=== PATIENT | female | born 1965 ===

== ENCOUNTER 2016-12-13 15:24 | Observation (INO) | payer OTHER ==
[2016-12-13 15:43] VITALS: BMI 29.7
[2016-12-13 15:49] VITALS: O2SAT 99
--- NOTE | 2016-12-13 15:51 | ED PDOC ---
Arrival/HPI - General Chief Complaint: Chest Pain Time Seen by Provider: 12/13/16 15:28 Historian: Patient - History of Present Illness Narrative History of Present Illness (Text): 12/13/16 15:39 A 51 year old female, whose past medical history includes hypertension, is presenting to the emergency department with complaints of chest pain and left sided numbness, which began earlier today. The patient reports that her symptoms began yesterday when she had a headache and then chest pain this morning. Today at 12:55 pm, she began to feel numbness, pain, and weakness in her left arm and in her left leg she began to feel numbness. She notes that her chest pain worsens with deep breaths. She denies any vision changes, nausea, vomiting, diarrhea, shortness of breath, hematuria, bloody stools, fever, or any other symptoms at this time. PMD: Dr. Zuniga Time/Duration: 4-6 hours (12:55 pm left sided arm & leg numbness ), 24 hours ( Headache) Symptom Onset: Sudden Symptom Course: Unchanged Activities at Onset: Light Context: Home, Work Past Medical History - Provider Review Nursing Documentation Reviewed: Yes - Cardiac Hx Hypertension: Yes - Pulmonary Hx Respiratory Disorders: No - Neurological Hx Neurological Disorder: No - HEENT Hx HEENT Disorder: No - Renal Hx Renal Disorder: No - Endocrine/Metabolic Hx Endocrine Disorders: No - Hematological/Oncological Hx Blood Disorders: No - Integumentary Hx Dermatological Disorder: No - Musculoskeletal/Rheumatological Hx Musculoskeletal Disorders: No - Gastrointestinal Hx Gastrointestinal Disorders: No - Genitourinary/Gynecological Hx Genitourinary Disorders: No - Psychiatric Hx Psychophysiologic Disorder: No Hx Substance Use: No - Surgical History Hx Section: Yes - Anesthesia Hx Anesthesia: No Hx Anesthesia Reactions: No Hx Malignant Hyperthermia: No Family/Social History - Physician Review Nursing Documentation Reviewed: Yes Family/Social History: No Known Family HX, Unknown Family HX Smoking Status: Never Smoked Hx Alcohol Use: No Hx Substance Use: No Allergies/Home Meds Allergies/Adverse Reactions: Allergies aspirin Allergy (Verified 12/13/16 15:40) RASH Home Medications: Home Meds Medication Instructions Recorded Confirmed Losartan/Hydrochlorothiazide 1 tab PO DAILY 12/13/16 12/13/16 [Losartan-Hctz 50-12.5 mg Tab] Pantoprazole [Protonix EC Tab] 40 mg PO DAILY 12/13/16 12/13/16 Review of Systems - Review of Systems Constitutional: absent: Fevers Eyes: absent: Vision Changes Respiratory: absent: SOB Cardiovascular: Chest Pain Gastrointestinal: absent: Abdominal Pain, Stool Changes, Diarrhea, Nausea, Vomiting Genitourinary Female: absent: Hematuria Neurological: Headache (3 days ), Focal Weakness (left arm) Physical Exam Vital Signs Reviewed: Yes Vital Signs Temp Pulse Resp BP Pulse Ox 12/13/16 15:49 80 18 163/79 H 99 12/13/16 15:25 98.1 F 76 16 163/79 H 99 Temperature: Afebrile Blood Pressure: Hypertensive Pulse: Regular Respiratory Rate: Normal Appearance: Positive for: Well-Appearing, Non-Toxic, Comfortable Pain Distress: None Mental Status: Positive for: Alert and Oriented X 3 Finger Stick Blood Glucose: 96 - Systems Exam Head: Present: Atraumatic, Normocephalic Pupils: Present: PERRL Extroacular Muscles: Present: EOMI Conjunctiva: Present: Normal Mouth: Present: Moist Mucous Membranes Pharnyx: Present: Normal. No: ERYTHEMA, EXUDATE Neck: Present: Normal Range of Motion Respiratory/Chest: Present: Clear to Auscultation, Good Air Exchange. No: Respiratory Distress, Accessory Muscle Use Cardiovascular: Present: Regular Rate and Rhythm, Normal S1, S2. No: Murmurs Abdomen: Present: Normal Bowel Sounds. No: Tenderness, Distention, Peritoneal Signs Upper Extremity: Present: Normal Inspection. No: Cyanosis, Edema Lower Extremity: Present: Normal Inspection. No: Edema Neurological: Present: GCS=15, CN II-XII Intact, Speech Normal, Motor Func Grossly Intact, Normal Cerebellar Funct Skin: Present: Warm, Dry, Normal Color. No: Rashes Psychiatric: Present: Alert, Oriented x 3, Normal Insight, Normal Concentration Medical Decision Making ED Course and Treatment: 12/13/16 15:39 Impression: A 51 year old female with chest pain and left sided numbness. Differential Diagnosis included but are not limited to: TIA vs ACS vs Hypertensive Urgency Plan: -- Head CT -- Chest X-ray -- Labs -- IV fluids -- Reassess and disposition Prior Visits: Notes and results from previous visits were reviewed. Patient was last seen in the emergency department on 05/03/16 for lightheadedness and was discharged home. Progress Notes: EKG: Ordered, reviewed, and independently interpreted the EKG. Rate : 73 BPM Rhythm : NSR Interpretation : Left LBBB QRS is 124 normal access pseudo normalization of T wave V-3and V-4. Comparison : No other ST/T changes from 05/03/16 (besides the pseudonormalization) 12/13/16 16:[address]: Negative Discussed with Dr. Jovon Mosley 12/13/16 16:28 Chest X-ray Brick Catcher : Glenn Whittington MD PROCEDURE: CHEST RADIOGRAPH, 1 VIEW HISTORY:chest pain, left side numbness IMPRESSION: No active disease. 12/13/16 17:25 A code stroke (15:45) was called given the symptom presentation; NIHSS was zero. Case was discussed with Dr. Jovon Mosley. Brain CT is negative and labs are nondiagnostic. EKG shows an old LBBB. Asa was held due to allergy. Given symptoms, the patient will need further observation for concern for TIA and ACS. Will place on tele. Discussed with Dr. Arvizu. - Lab Interpretations Lab Results: 12/13/16 16:05 12/13/16 16:05 Lab Results 12/13/16 16:05: Blood Type AB NEGATIVE, Antibody Screen Negative, BBK History Checked No verified bt 12/13/16 16:05: Sodium 137, Potassium 3.4 L, Chloride 101, Carbon Dioxide 26, Anion Gap 13, BUN 8, Creatinine 0.8, Est GFR ( Amer) > 60, Est GFR (Non- Af Amer) > 60, Random Glucose 103, Calcium 9.4, Total Bilirubin 0.6, AST 27, ALT 29, Alkaline Phosphatase 59, Lactate Dehydrogenase 434, Total Creatine Kinase 63, Troponin I < 0.01, Total Protein 8.0, Albumin 4.3, Globulin 3.7, Albumin/Globulin Ratio 1.2, Triglycerides 262 H, Cholesterol 229 H, LDL Cholesterol Direct 139 H, HDL Cholesterol 49, Lipase 72 12/13/16 16:05: PT 10.9, INR 1.01, APTT 26.1 12/13/16 16:05: WBC 8.1 D, RBC 4.80, Hgb 13.9, Hct 39.8, MCV 82.9, MCH 29.0, MCHC 34.9, RDW 13.3, Plt Count 252, MPV 10.6, Gran % 51.3, Lymph % (Auto) 36.4 H , Hayes % (Auto) 8.4 H, Eos % (Auto) 3.2, Baso % (Auto) 0.7, Gran # 4.14, Lymph # 2.9, Hayes # 0.7 H, Eos # 0.3, Baso # 0.06 12/13/16 15:47: POC Glucose (mg/dL) 96 - RAD Interpretation Radiology Orders: 12/13/16 15:46 HEAD W/O (CODE STROKE) [CT] Stat CHEST ONE VIEW [RAD] Stat - Medication Orders Current Medication Orders: Discontinued Medications Potassium Chloride (K-Dur 20 Meq Er Tab) 40 meq PO STAT STA Stop: 12/13/16 16:44 Last Admin: 12/13/16 16:52 Dose: 40 meq NIHSS Scale ([place]) Time Performed: 15:45 - How Severe is the Stoke Baseline Level of Consciousness: 0=Alert LOC to Questions: 0=Both comments correct LOC to commands: 0=Obeys both correctly Best Gaze: 0=Normal Visual: 0=No visual loss Facial: 0=Normal Motor Arm - Left: 0=No drift Motor Arm - Right: 0=No drift Motor Leg - Left: 0=No drift Motor Leg - Right: 0=No drift Limb Ataxia: 0=Absent Sensory: 0=Normal Best Language: 0=No aphasia Dysarthia: 0=Normal articulation Extinction & Inattention (Neglect): 0=Normal, no object Score: 0 Risk Level: No Stroke Risk - PA / STEEL SAMPLER / Resident Statement MD/DO has reviewed & agrees with the documentation as recorded. - Scribe Statement The provider has reviewed the documentation as recorded by the Alyciaibginny Reyes Provider Scribe Attestation: All medical record entries made by the Merly were at my direction and personally dictated by me. I have reviewed the chart and agree that the record accurately reflects my personal performance of the history, physical exam, medical decision making, and the department course for this patient. I have also personally directed, reviewed, and agree with the discharge instructions and disposition. Disposition/Present on Arrival - Present on Arrival Any Indicators Present on Arrival: No History of DVT/PE: No History of Uncontrolled Diabetes: No Urinary Catheter: No History of Decub. Ulcer: No History Surgical Site Infection Following: None - Disposition Have Diagnosis and Disposition been Completed?: Yes Diagnosis: Chest pain, Transient ischemic attack Disposition: HOSPITALIZED Disposition Time: 15:45 Patient Plan: Observation, Telemetry Condition: FAIR Discharge Instructions (ExitCare): Chest Pain (ED) Forms: [employer] (Tristanian)
--- NOTE | 2016-12-13 16:12 | CT ---
PROCEDURE: CT HEAD WITHOUT CONTRAST. HISTORY: headache, L side numbness COMPARISON: None available. TECHNIQUE: Axial computed tomography images were obtained through the head/brain without intravenous contrast. Radiation dose: Total exam DLP = 757 mGy-cm. This CT exam was performed using one or more of the following dose reduction techniques: Automated exposure control, adjustment of the mA and/or kV according to patient size, and/or use of iterative reconstruction technique. FINDINGS: HEMORRHAGE: No intracranial hemorrhage. BRAIN: No mass effect or edema. No atrophy or chronic microvascular ischemic changes. VENTRICLES: Unremarkable. No hydrocephalus. CALVARIUM: Unremarkable. PARANASAL SINUSES: Unremarkable as visualized. No significant inflammatory changes. MASTOID AIR CELLS: Unremarkable as visualized. No inflammatory changes. OTHER FINDINGS: Dr. Monique was called at 4:10 p.m. IMPRESSION: Negative study
--- NOTE | 2016-12-13 16:15 | RAD ---
PROCEDURE: CHEST RADIOGRAPH, 1 VIEW HISTORY: chest pain, left side numbness COMPARISON: 05/03/2016 FINDINGS: LUNGS: Clear. PLEURA: No pneumothorax or pleural fluid seen. CARDIOVASCULAR: Normal. OSSEOUS STRUCTURES: No significant abnormalities. VISUALIZED UPPER ABDOMEN: Normal. OTHER FINDINGS: None. IMPRESSION: No active disease.
[2016-12-13 16:24] LABS: ADD MANUAL DIFF? NO
[2016-12-13 16:29] LABS: BASO # 0.06 K/mm3 (0.0-2.0); BASO % 0.7 % (0.0-3.0); EOS # 0.3 (0.0-0.7); EOS % 3.2 % (1.5-5.0); GRAN # 4.14 (1.4-6.5); GRAN % 51.3 % (50.0-68.0); HEMATOCRIT 39.8 % (36.0-48.0); LYMPH # 2.9 (1.2-3.4); LYMPH % 36.4 % (22.0-35.0); MEAN CELL VOLUME 82.9 fL (80.0-105.0); MEAN CORPUSCULAR HGB CONC 34.9 g/dl (31.0-37.0); MEAN PLATELET VOLUME 10.6 fl (7.0-11.0); MONO # 0.7 (0.1-0.6); MONO % 8.4 % (1.0-6.0); PLATELET COUNT 252 10^3/uL (120.0-450.0); RED CELL DISTRIBUTION WIDTH 13.3 % (11.5-14.5); WHITE BLOOD COUNT 8.1 10^3/ul (4.5-11.0)
[2016-12-13 16:39] LABS: INR 1.01 (0.93-1.08); PARTIAL THROMBOPLASTIN TIME 26.1 Seconds (23.7-30.8)
[2016-12-13 16:40] LABS: ALB/GLOB RATIO 1.2 (1.1-1.8); ALKALINE PHOSPHATASE 59 U/L (38-133); ALT/SGPT 29 U/L (7-56); AST/SGOT 27 U/L (15-39); BILIRUBIN,TOTAL 0.6 mg/dL (0.2-1.3); BLOOD UREA NITROGEN 8 mg/dL (7-21); CALCIUM 9.4 mg/dL (8.4-10.5); CARBON DIOXIDE 26 mmol/L (21-33); CHLORIDE 101 mmol/L (98-107); CHOLESTEROL 229 mg/dL (130-200); GFR AFRICAN-AMERICAN > 60; GLUCOSE,RANDOM 103 mg/dL (70-110); LIPASE 72 U/L (23-300); POTASSIUM 3.4 mmol/L (3.6-5.0); SODIUM 137 mmol/L (132-148)
[2016-12-13] MEDS ORDERED: Potassium Chloride 20 mEq ER Tab PO STA (16:43)
[2016-12-13 16:55] LABS: TROPONIN I < 0.01 ng/mL
--- NOTE | 2016-12-13 18:26 | CP.PCM.HP ---
History of Present Illness - History of Present Illness History of Present Illness: 51 y/o F with PMH of HTN and GERD presents to the ED for 4 hour onset of chest pain and left sided paresthesias and numbness. Pt states she woke up this morning and noticed she had some chest discomfort. Pain was located substernally and radiated to her left arm. Pt states she has never had pain like this before. She did not take any medication for it at home. On arrival to the ED, her pain went away. In addition to having chest pain, pt reports having a numbness and tingling sensation throughout her left arm and below her left knee to her feet. She has not had symptoms like this before. She also mentions having weakness in her left arm and leg for a short period, which also resolved while the paresthesias remained. Pt reports having a left-sided headache. She denies any auras. Denies CP, SOB, N/V/D, fever, chills, recent sick contacts, syncope, dizziness. PMH: HTN, GERD Surgical Hx: FMH: Gastric Cancer, DM Social Hx: Denies alcohol, tobacco, or illicit drug use Medication: Protonix, Losartan-HCTZ Allergies: ASA Present on Admission - Present on Admission Any Indicators Present on Admission: No Review of Systems - Constitutional Constitutional: absent: Chills, Fatigue, Fever - EENT Eyes: absent: Blurred Vision, Change in Vision - Cardiovascular Cardiovascular: Chest Pain. absent: Irregular Heart Rhythm, Palpitations - Respiratory Respiratory: absent: Cough, Dyspnea - Gastrointestinal Gastrointestinal: absent: Diarrhea, Nausea, Vomiting - Genitourinary Genitourinary: absent: Dysuria, Pyuria - Musculoskeletal Musculoskeletal: Muscle Weakness, Numbness, Tingling - Integumentary Integumentary: absent: New Lesions, Rash - Neurological Neurological: Numbness, Headaches, Tingling. absent: Syncope - Hematologic/Lymphatic Hematologic: absent: Easy Bleeding, Easy Bruising Past Patient History - Past Social History Smoking Status: Never Smoked - CARDIAC Hx Hypertension: Yes - PULMONARY Hx Respiratory Disorders: No - NEUROLOGICAL Hx Neurological Disorder: No - HEENT Hx HEENT Problems: No - RENAL Hx Chronic Kidney Disease: No - ENDOCRINE/METABOLIC Hx Endocrine Disorders: No - HEMATOLOGICAL/ONCOLOGICAL Hx Blood Disorders: No - INTEGUMENTARY Hx Dermatological Problems: No - MUSCULOSKELETAL/RHEUMATOLOGICAL Hx Musculoskeletal Disorders: No - GASTROINTESTINAL Hx Gastrointestinal Disorders: No - GENITOURINARY/GYNECOLOGICAL Hx Genitourinary Disorders: No - PSYCHIATRIC Hx Psychophysiologic Disorder: No Hx Substance Use: No - SURGICAL HISTORY Hx Section: Yes - ANESTHESIA Hx Anesthesia: No Hx Anesthesia Reactions: No Hx Malignant Hyperthermia: No Meds Allergies/Adverse Reactions: Allergies Allergy/AdvReac Type Severity Reaction Status Date / Time aspirin Allergy RASH Verified 12/13/16 15:40 Physical Exam - Constitutional Appears: Well, No Acute Distress - Head Exam Head Exam: ATRAUMATIC, NORMAL INSPECTION, NORMOCEPHALIC - Eye Exam Eye Exam: EOMI - ENT Exam ENT Exam: Mucous Membranes Moist - Neck Exam Neck exam: Positive for: Normal Inspection. Negative for: Lymphadenopathy - Respiratory Exam Respiratory Exam: Clear to Auscultation Bilateral, NORMAL BREATHING PATTERN. absent: Rales, Rhonchi, Wheezes - Cardiovascular Exam Cardiovascular Exam: RRR, +S1, +S2 - GI/Abdominal Exam GI & Abdominal Exam: Normal Bowel Sounds, Soft. absent: Tenderness - Extremities Exam Extremities exam: Positive for: normal inspection. Negative for: calf tenderness, pedal edema - Neurological Exam Neurological exam: Alert, CN II-XII Intact, Oriented x3 Additional comments: No sensory deficits. No focal neurological deficits. 5/5 muscle strength in b/l upper and lower extremities. - Psychiatric Exam Psychiatric exam: Normal Affect, Normal Mood - Skin Skin Exam: Intact, Normal Color, Warm Results - Vital Signs Recent Vital Signs: Last Vital Signs Temp 98.1 F 12/13/16 15:25 Pulse 73 12/13/16 17:25 Resp 18 12/13/16 17:25 BP 109/55 L 12/13/16 17:25 Pulse Ox 99 12/13/16 17:25 - Labs Result Diagrams: 12/13/16 16:05 12/13/16 16:05 Assessment & Plan - Assessment and Plan (Free Text) Plan: 51 y/o F with PMH of HTN and GERD presents with Chest pain r/o ACS and TIA. Head CT and chest x-ray negative for any acute pathology. Pt will be admitted to telemetry. Cardiology and Neurology will be consulted. Will trend troponins at this time. 1. Chest pain r/o ACS - Trend troponins - Echocardiogram - Morphine for chest pain - Heart healthy diet - Cardiology consult, Dr. Avila 2. TIA - No symptoms currently - ASA allergy, will not start aspirin - Lipid panel ordered - HgA1c ordered - Neurology consult, Dr. Haroon Mosley 3. HTN - Continue Losartan and HCTZ - Monitor BP 4. GERD - Continue Protonix 5. PPX - Protonix - Heparin Seen, reviewed, and discussed with attending Charles, PGY-2
[2016-12-13] MEDS ORDERED: Morphine 2 mg/ml ISec IVP PRN (18:38)
[2016-12-13 19:13] LABS: MAGNESIUM 2.1 mg/dL (1.7-2.2); PHOSPHOROUS 3.3 mg/dL (2.5-4.5)
[2016-12-13] MEDS ORDERED: Pneumococcal 23-Valent Vaccine IM ONE (20:58)
[2016-12-14 04:08] LABS: HEMATOCRIT 39.4 % (36.0-48.0); MEAN CELL VOLUME 83.8 fL (80.0-105.0); MEAN CORPUSCULAR HEMOGLOBIN 28.3 pg (25.0-35.0); MEAN CORPUSCULAR HGB CONC 33.8 g/dl (31.0-37.0); MEAN PLATELET VOLUME 10.6 fl (7.0-11.0); RED CELL DISTRIBUTION WIDTH 13.5 % (11.5-14.5); WHITE BLOOD COUNT 6.5 10^3/ul (4.5-11.0)
[2016-12-14 04:22] LABS: ALB/GLOB RATIO 1.1 (1.1-1.8); ALKALINE PHOSPHATASE 47 U/L (38-133); ALT/SGPT 25 U/L (7-56); AST/SGOT 18 U/L (15-39); BILIRUBIN,TOTAL 0.6 mg/dL (0.2-1.3); BLOOD UREA NITROGEN 11 mg/dL (7-21); CALCIUM 9.4 mg/dL (8.4-10.5); CARBON DIOXIDE 24 mmol/L (21-33); CHLORIDE 104 mmol/L (98-107); GFR AFRICAN-AMERICAN > 60; GLUCOSE,RANDOM 98 mg/dL (70-110); POTASSIUM 3.7 mmol/L (3.6-5.0); SODIUM 140 mmol/L (132-148); TOTAL PROTEIN 7.3 g/dL (5.8-8.3)
[2016-12-14 04:34] LABS: TROPONIN I < 0.01 ng/mL
--- NOTE | 2016-12-14 10:11 | CARD ---
APPROVED REPORT EKG Measurement Heart [id number] <Conclusion> Normal sinus rhythm Left bundle branch block No change except the rate is faster
[2016-12-14 12:04] VITALS: BP 109/61; PULSE 64; RESP 18; TEMP 98.3
--- NOTE | 2016-12-14 14:28 | CON ---
DATE: 12/14/2016 NEUROLOGY CONSULT CHIEF COMPLAINT: Left-sided paresthesias. HISTORY OF PRESENT ILLNESS: This is a 51-year-old woman with history of hypertension, GERD, who came to the hospital for atypical chest pain and left-sided arm and leg numbness and tingling with a left-sided headache. She does not take any medication at home. SHE IS ALLERGIC TO ASPIRIN. No focal weakness in the extremities. She says she no longer has a headache at this time. She has been in little distress from family issues. Currently, her neuro exam is nonfocal. CAT scan of the head shows no acute intracranial abnormality. PAST MEDICAL HISTORY: Hypertension, GERD. PAST SURGICAL HISTORY: . FAMILY HISTORY: Gastric cancer, diabetes. SOCIAL HISTORY: No illicit drug use, smoking or ETOH abuse. MEDICATIONS: Protonix, losartan/hydrochlorothiazide. ALLERGIES: ASPIRIN. REVIEW OF SYSTEMS: A 14-point review of system is negative except as in the HPI. PHYSICAL EXAMINATION: VITAL SIGNS: Temperature 98.3, pulse rate 64, blood pressure 109/61, respiratory rate of 18, oxygen saturation 99% on room air. GENERAL: The patient is seen up in bed, in no acute distress. HEENT: Head is atraumatic and normocephalic. PERRLA. Extraocular muscles intact. NECK: Supple. No JVD. No adenopathy noted. LUNGS: Clear to auscultation. No adventitious sounds. HEART: S1 and S2, normal rate and rhythm. No murmurs, rubs, or gallops. ABDOMEN: Soft, nontender, and nondistended. Bowel sounds are present. EXTREMITIES: No clubbing. No cyanosis. Peripheral pulses 2+ bilaterally. NEUROLOGIC: The patient is alert and oriented to person, place, month, and year. Speech is fluent without any errors. Cranial nerves II through XII are intact. Motor exam: Moves all extremities equally. Toes are downgoing bilaterally. Sensory exam: Light touch, pinprick, proprioception and vibration are intact. DTRs are 2+ throughout. Coordination: [id number] intact. Gait is normal. LABORATORY DATA: Sodium is 140, potassium is 3.7, chloride 104, carbon dioxide 24, BUN of 11, creatinine of 0.8 and random glucose 98. Triglycerides 262, cholesterol 229, LDL is 139. ASSESSMENT: This is a 51-year-old woman with a past medical history of hypertension, gastroesophageal reflux disease, hypertriglyceridemia, hypercholesterolemia, who came in for transient left arm and leg paresthesias with left-sided headache. Her symptoms likely are secondary to transient cerebral hypoperfusion given that she has a low systolic and diastolic blood pressure superimposed underlying atypical variant migraine. PLAN: At this time, she is clinically stable. We will place her on Plavix 75 mg and Lipitor 20 mg for stroke prevention. I can follow up in the office. Recommend exercise and healthy diet lifestyle. Thank you for this consult. Jovon Mosley MD
--- NOTE | 2016-12-14 14:31 | CP.PCM.DIS ---
<AartiivisEdy jamison - Last Filed: 12/14/16 17:20> Provider - Provider Date of Admission: 12/13/16 17:22 Attending physician: Vito Arvizu MD Primary care physician: Goldy Zuniga MD Consults: none Time Spent in preparation of Discharge (in minutes): 30 Diagnosis - Discharge Diagnosis (1) Chest pain Status: Resolved (2) Transient ischemic attack Status: Resolved Hospital Course - Lab Results Lab Results: Most Recent Lab Values WBC 6.5 10^3/ul (4.5-11.0) 12/14/16 03:59 RBC 4.70 10^6/uL (3.5-6.1) 12/14/16 03:59 Hgb 13.3 gm/dL (12.0-16.0) 12/14/16 03:59 Hct 39.4 % (36.0-48.0) 12/14/16 03:59 MCV 83.8 fL (80.0-105.0) 12/14/16 03:59 MCH 28.3 pg (25.0-35.0) 12/14/16 03:59 MCHC 33.8 g/dl (31.0-37.0) 12/14/16 03:59 RDW 13.5 % (11.5-14.5) 12/14/16 03:59 Plt Count 232 10^3/uL (120.0-450.0) 12/14/16 03:59 MPV 10.6 fl (7.0-11.0) 12/14/16 03:59 Gran % 51.3 % (50.0-68.0) 12/13/16 16:05 Lymph % (Auto) 36.4 % (22.0-35.0) H 12/13/16 16:05 [place] % (Auto) 8.4 % (1.0-6.0) H 12/13/16 16:05 Eos % (Auto) 3.2 % (1.5-5.0) 12/13/16 16:05 Baso % (Auto) 0.7 % (0.0-3.0) 12/13/16 16:05 Gran # 4.14 (1.4-6.5) 12/13/16 16:05 Lymph # 2.9 (1.2-3.4) 12/13/16 16:05 [place] # 0.7 (0.1-0.6) H 12/13/16 16:05 Eos # 0.3 (0.0-0.7) 12/13/16 16:05 Baso # 0.06 K/mm3 (0.0-2.0) 12/13/16 16:05 PT 10.9 Seconds (9.9-11.8) 12/13/16 16:05 INR 1.01 (0.93-1.08) 12/13/16 16:05 APTT 26.1 Seconds (23.7-30.8) 12/13/16 16:05 Sodium 140 mmol/L (132-148) 12/14/16 03:59 Potassium 3.7 mmol/L (3.6-5.0) 12/14/16 03:59 Chloride 104 mmol/L (98-107) 12/14/16 03:59 Carbon Dioxide 24 mmol/L (21-33) 12/14/16 03:59 Anion Gap 16 (10-20) 12/14/16 03:59 BUN 11 mg/dL (7-21) 12/14/16 03:59 Creatinine 0.8 mg/dL (0.5-1.4) 12/14/16 03:59 Est GFR ( Amer) > 60 12/14/16 03:59 Est GFR (Non-Af Amer) > 60 12/14/16 03:59 POC Glucose (mg/dL) 96 mg/dL (65-110) 12/13/16 15:47 Random Glucose 98 mg/dL (70-110) 12/14/16 03:59 Calcium 9.4 mg/dL (8.4-10.5) 12/14/16 03:59 Phosphorus 3.3 mg/dL (2.5-4.5) 12/13/16 16:05 Magnesium 2.1 mg/dL (1.7-2.2) 12/13/16 16:05 Total Bilirubin 0.6 mg/dL (0.2-1.3) 12/14/16 03:59 AST 18 U/L (15-39) 12/14/16 03:59 ALT 25 U/L (7-56) 12/14/16 03:59 Alkaline Phosphatase 47 U/L (38-133) 12/14/16 03:59 Lactate Dehydrogenase 434 U/L (333-699) 12/13/16 16:05 Total Creatine Kinase 63 U/L (35-230) 12/13/16 16:05 Troponin I < 0.01 ng/mL 12/14/16 03:59 Total Protein 7.3 g/dL (5.8-8.3) 12/14/16 03:59 Albumin 3.9 g/dL (3.0-4.8) 12/14/16 03:59 Globulin 3.5 gm/dL 12/14/16 03:59 Albumin/Globulin Ratio 1.1 (1.1-1.8) 12/14/16 03:59 Triglycerides 262 mg/dL (35-160) H 12/13/16 16:05 Cholesterol 229 mg/dL (130-200) H 12/13/16 16:05 LDL Cholesterol Direct 139 mg/dL (0-129) H 12/13/16 16:05 HDL Cholesterol 49 mg/dL (29-60) 12/13/16 16:05 Lipase 72 U/L (23-300) 12/13/16 16:05 Blood Type AB NEGATIVE 12/13/16 16:05 Antibody Screen Negative 12/13/16 16:05 BBK History Checked No verified bt 12/13/16 16:05 - Hospital Course Hospital Course: Patient is a 51 year old female with past medical history of hypertension and GERD who [place] [facility] [place] for chest pain and left sided paresthesias and numbness. In the emergency department she was evaluated and a code stroke was called. Patient noted to have NIHS score of zero. Dr. Jovon Ledbetter with neurology was consulted and a Brain CT was preformed and determined to be negative for acute ischemic changes. Patient was admitted for suspected TIA and ACS rule out and placed on telemetry and monitored overnight. Patient symptoms improved and she was found to be neurological intact without deficit. Neurology indicated that the patient was clinically stable and planned for outpatient follow up. The patient was placed on Plavix 75mg and Lipitor 20mg. The patient was deemed to be hemodynamically stable and able for discharge for appropriate follow up outpatient. - Date & Time of H&P Date of H&P: 12/13/16 Time of H&P: 18:20 Discharge Exam - Head Exam Head Exam: ATRAUMATIC, NORMAL INSPECTION, NORMOCEPHALIC - Eye Exam Eye Exam: EOMI, PERRL - ENT Exam ENT Exam: Mucous Membranes Moist, Normal Exam - Neck Exam Neck exam: Full Rom - Respiratory Exam Respiratory Exam: Clear to PA & Lateral, NORMAL BREATHING PATTERN - Cardiovascular Exam Cardiovascular Exam: REGULAR RHYTHM, +S1, +S2 - GI/Abdominal Exam GI & Abdominal Exam: Normal Bowel Sounds, Unremarkable - Extremities Exam Extremities exam: full ROM, normal capillary refill - Neurological Exam Neurological exam: Alert, CN II-XII Intact, Normal Gait, Oriented x3, Reflexes Normal - Psychiatric Exam Psychiatric exam: Normal Affect, Normal Mood - Skin Skin Exam: Dry, Intact, Normal Color, Warm Discharge Plan - Follow Up Plan Condition: FAIR Disposition: HOME/ ROUTINE Instructions: Transient Ischemic Attack (GEN), Chest Pain (GEN) Additional Instructions: 1. Follow up with PMD DR. Zuniga in 3 days. 2. Follow up stress test as outpatient. 3. Heart healthy diet. 4. Continue medications as prescribed to you. follow up with DR. ledbetter as needed. 5. If your symptoms return or worsen please seek medical attention. Referrals: Goldy Zuniga MD [Primary Care Provider] - Jovon Ledbetter MD [Staff Provider] - <Vito Arvizu - Last Filed: 12/14/16 17:47> Provider - Provider Date of Admission: 12/13/16 17:22 Attending physician: Vito Arvizu MD Primary care physician: Goldy Zuniga MD Hospital Course - Lab Results Lab Results: Most Recent Lab Values WBC 6.5 10^3/ul (4.5-11.0) 12/14/16 03:59 RBC 4.70 10^6/uL (3.5-6.1) 12/14/16 03:59 Hgb 13.3 gm/dL (12.0-16.0) 12/14/16 03:59 Hct 39.4 % (36.0-48.0) 12/14/16 03:59 MCV 83.8 fL (80.0-105.0) 12/14/16 03:59 MCH 28.3 pg (25.0-35.0) 12/14/16 03:59 MCHC 33.8 g/dl (31.0-37.0) 12/14/16 03:59 RDW 13.5 % (11.5-14.5) 12/14/16 03:59 Plt Count 232 10^3/uL (120.0-450.0) 12/14/16 03:59 MPV 10.6 fl (7.0-11.0) 12/14/16 03:59 Gran % 51.3 % (50.0-68.0) 12/13/16 16:05 Lymph % (Auto) 36.4 % (22.0-35.0) H 12/13/16 16:05 [place] % (Auto) 8.4 % (1.0-6.0) H 12/13/16 16:05 Eos % (Auto) 3.2 % (1.5-5.0) 12/13/16 16:05 Baso % (Auto) 0.7 % (0.0-3.0) 12/13/16 16:05 Gran # 4.14 (1.4-6.5) 12/13/16 16:05 Lymph # 2.9 (1.2-3.4) 12/13/16 16:05 [place] # 0.7 (0.1-0.6) H 12/13/16 16:05 Eos # 0.3 (0.0-0.7) 12/13/16 16:05 Baso # 0.06 K/mm3 (0.0-2.0) 12/13/16 16:05 PT 10.9 Seconds (9.9-11.8) 12/13/16 16:05 INR 1.01 (0.93-1.08) 12/13/16 16:05 APTT 26.1 Seconds (23.7-30.8) 12/13/16 16:05 Sodium 140 mmol/L (132-148) 12/14/16 03:59 Potassium 3.7 mmol/L (3.6-5.0) 12/14/16 03:59 Chloride 104 mmol/L (98-107) 12/14/16 03:59 Carbon Dioxide 24 mmol/L (21-33) 12/14/16 03:59 Anion Gap 16 (10-20) 12/14/16 03:59 BUN 11 mg/dL (7-21) 12/14/16 03:59 Creatinine 0.8 mg/dL (0.5-1.4) 12/14/16 03:59 Est GFR ( Amer) > 60 12/14/16 03:59 Est GFR (Non-Af Amer) > 60 12/14/16 03:59 POC Glucose (mg/dL) 96 mg/dL (65-110) 12/13/16 15:47 Random Glucose 98 mg/dL (70-110) 12/14/16 03:59 Calcium 9.4 mg/dL (8.4-10.5) 12/14/16 03:59 Phosphorus 3.3 mg/dL (2.5-4.5) 12/13/16 16:05 Magnesium 2.1 mg/dL (1.7-2.2) 12/13/16 16:05 Total Bilirubin 0.6 mg/dL (0.2-1.3) 12/14/16 03:59 AST 18 U/L (15-39) 12/14/16 03:59 ALT 25 U/L (7-56) 12/14/16 03:59 Alkaline Phosphatase 47 U/L (38-133) 12/14/16 03:59 Lactate Dehydrogenase 434 U/L (333-699) 12/13/16 16:05 Total Creatine Kinase 63 U/L (35-230) 12/13/16 16:05 Troponin I < 0.01 ng/mL 12/14/16 03:59 Total Protein 7.3 g/dL (5.8-8.3) 12/14/16 03:59 Albumin 3.9 g/dL (3.0-4.8) 12/14/16 03:59 Globulin 3.5 gm/dL 12/14/16 03:59 Albumin/Globulin Ratio 1.1 (1.1-1.8) 12/14/16 03:59 Triglycerides 262 mg/dL (35-160) H 12/13/16 16:05 Cholesterol 229 mg/dL (130-200) H 12/13/16 16:05 LDL Cholesterol Direct 139 mg/dL (0-129) H 12/13/16 16:05 HDL Cholesterol 49 mg/dL (29-60) 12/13/16 16:05 Lipase 72 U/L (23-300) 12/13/16 16:05 Blood Type AB NEGATIVE 12/13/16 16:05 Antibody Screen Negative 12/13/16 16:05 BBK History Checked No verified bt 12/13/16 16:05 Attending/Attestation - Attestation I have personally seen and examined this patient.: Yes I have fully participated in the care of the patient.: Yes I have reviewed all pertinent clinical information, including history, physical exam and plan: Yes Notes (Text): 12/14/16 17:44 attending note; Patient seen and examined with resident. Patient is a 51-year- female with a past medical history of hypertension is admitted with chest pain and left arm and leg paresthesia. currently no symptoms. CT head is negative. Cardiac enzymes 3 negative. EKG showed old left bundle-branch block.Cardiology evaluation appreciated. Outpatient stress test recommended. Patient has cardiology appointment in 2 weeks. Neurology evaluation appreciated. patient will be discharged home. Continue Lipitor and antihypertensive therapy. Follow-up blood pressure closely. Follow-up with PMD Dr. Zuniga. diagnosis; Atypical chest pain Left-sided paresthesia
--- NOTE | 2016-12-14 21:44 | CON ---
REASON FOR CONSULTATION: Abnormal EKG. HISTORY OF PRESENT ILLNESS: The patient is a 51 years old female who has a history of hypertension, presented because of chest discomfort and left-sided numbness. The patient denies any known prior cardiac history and denies any history of stroke in the past. SOCIAL HISTORY: The patient is a nonsmoker and nondrinker. MEDICATIONS: Cozaar 50 mg once a day, Heparin 5000 units subcutaneous q. 8 hours, Lipitor 40 mg once a day, hydrochlorothiazide 12.5 mg once a day, Plavix 75 mg once a day, and Protonix 40 mg once a day. REVIEW OF SYSTEMS: No fever or chills. No vomiting or diarrhea. PHYSICAL EXAMINATION: GENERAL: The patient is a middle-aged female who does not appear to be in any distress. VITAL SIGNS: Blood pressure 109/61, heart rate 64, temperature , and respirations 18. HEENT: Normocephalic. NECK: No JVD. CHEST: Clear. HEART: S1 and S2 regular. ABDOMEN: Soft. EXTREMITIES: No edema. LABORATORY DATA: CBC are within normal limits. PT and PTT are within normal limits. Today, SMA-7 is within normal limits. Two sets of troponin's were negative. Triglycerides 262, total cholesterol 229, LDL cholesterol 139. These [address] scan without contrast. No acute intracranial abnormality and EKG revealed sinus rhythm, left bundle branch block and another EKG from late of 2005 revealed same findings of left bundle branch block. ASSESSMENT: 1. Atypical chest pain, myocardial infarction is ruled out. 2. Left bundle branch block. 3. Hyperlipidemia. 4. Hypertension. RECOMMENDATIONS: Continue current Cozaar, Lipitor and Plavix. Obtain an echocardiogram and scheduled the patient for Lexiscan as an outpatient. Case was discussed with Dr. Arvizu. Paresh Avila MD
== END 2016-12-14 16:42 | disposition home or self-care (01) ==
LOC: ED 15:24 → ERH 17:22 → 2RNO 18:30
PROVIDERS: ADMIT Internal Medicine; ATTEND Internal Medicine
DX: R07.89 Other chest pain (principal); G45.9 Transient cerebral ischemic attack, unspecified; I10 Essential (primary) hypertension; E78.00 Pure hypercholesterolemia, unspecified; E78.1 Pure hyperglyceridemia; E78.5 Hyperlipidemia, unspecified; G43.909 Migraine, unspecified, not intractable, without status migrainosus; I44.7 Left bundle-branch block, unspecified; K21.9 Gastro-esophageal reflux disease without esophagitis; Z88.6 Allergy status to analgesic agent; R40.2412 Glasgow coma scale score 13-15, at arrival to emergency department; Z80.0 Family history of malignant neoplasm of digestive organs; Z83.3 Family history of diabetes mellitus
CPT/HCPCS: 36415; 70450; 71010; 80053; 80061; 82550; 82948; 83036; 83615; 83690; 83735; 84100; 84484; 85025; 85027; 85610; 85730; 86850; 86900; 93005; 96372; 96374; 99285; C9113; G0378; J1644

== ENCOUNTER 2017-04-10 09:09 | Emergency (ER) | payer OTHER ==
[2017-04-10 09:21] VITALS: BMI 29.2
[2017-04-10] MEDS ORDERED: Sodium Chloride 0.9% 1,000 ML IV STA (09:24)
[2017-04-10 09:30] VITALS: O2SAT 100
--- NOTE | 2017-04-10 09:36 | ED PDOC ---
Arrival/HPI - General Chief Complaint: Shortness Of Breath Time Seen by Provider: 04/10/17 09:15 Historian: Patient - History of Present Illness Narrative History of Present Illness (Text): 04/10/17 09:33 A 52 year old female whose past medical history includes hypertension, presents to the emergency department with a complaint of shortness of breath. The patient states that she woke up to go to work, and about an hour later, she began to experience the shortness of breath. The patient denies fevers, chills, headache, dizziness, chest pain, dyspnea on exertion, cough, abdominal pain, nausea, vomiting, diarrhea, back pain, neck pain, urinary/bowel changes, or any other complaint. PMD: Dr. Zuniga Time/Duration: Other (This Morning) Symptom Onset: Sudden Symptom Course: Unchanged Activities at Onset: Rest, Light Context: Home Past Medical History - Provider Review Nursing Documentation Reviewed: Yes - Cardiac Hx Cardiac Disorders: Yes Hx Hypertension: Yes - Pulmonary Hx Respiratory Disorders: No - Neurological Hx Neurological Disorder: No - HEENT Hx HEENT Disorder: No - Renal Hx Renal Disorder: No - Endocrine/Metabolic Hx Endocrine Disorders: No - Hematological/Oncological Hx Blood Disorders: No - Integumentary Hx Dermatological Disorder: No - Musculoskeletal/Rheumatological Hx Musculoskeletal Disorders: No Hx Falls: No - Gastrointestinal Hx Gastrointestinal Disorders: Yes Hx Diverticulitis: Yes Hx Gastroesophageal Reflux: Yes - Genitourinary/Gynecological Hx Genitourinary Disorders: No - Psychiatric Hx Psychophysiologic Disorder: Yes (INSOMNIA) Hx Substance Use: No - Surgical History Hx Section: Yes - Anesthesia Hx Anesthesia: Yes Hx Anesthesia Reactions: No Hx Malignant Hyperthermia: No Family/Social History - Physician Review Nursing Documentation Reviewed: Yes Family/Social History: No Known Family HX Smoking Status: Never Smoked Hx Alcohol Use: Yes (SOCIALLY) Hx Substance Use: No Allergies/Home Meds Allergies/Adverse Reactions: Allergies aspirin Allergy (Verified 04/10/17 09:31) RASH Home Medications: Home Meds Medication Instructions Recorded Confirmed Losartan/Hydrochlorothiazide 1 tab PO DAILY 12/13/16 04/10/17 [Losartan-Hctz 50-12.5 mg Tab] Cyclobenzaprine [Cyclobenzaprine 10 mg PO PRN PRN 04/10/17 04/10/17 HCl] Naproxen [Naprosyn] 500 mg PO Q12 PRN 04/10/17 04/10/17 Review of Systems - Physician Review All systems were reviewed & negative as marked: Yes - Review of Systems Constitutional: absent: Fevers, Night Sweats Respiratory: SOB Cardiovascular: absent: Chest Pain, SIDHU Gastrointestinal: absent: Abdominal Pain, Stool Changes, Diarrhea, Nausea, Vomiting Genitourinary Female: absent: Urine Output Changes Musculoskeletal: absent: Back Pain, Neck Pain Neurological: absent: Headache, Dizziness Physical Exam Vital Signs Reviewed: Yes Vital Signs Temp Pulse Resp BP Pulse Ox 04/10/17 12:10 89 18 123/61 100 04/10/17 11:08 98 H 18 125/59 L 100 04/10/17 09:47 98.3 F 103 H 24 128/58 L 100 04/10/17 09:21 98 F 128 H 24 95/58 L 100 Temperature: Afebrile Blood Pressure: Hypotensive Pulse: Tachycardic Respiratory Rate: Normal Appearance: Positive for: Well-Appearing, Non-Toxic Pain Distress: None Mental Status: Positive for: Alert and Oriented X 3, other (Anxious) - Systems Exam Head: Present: Atraumatic, Normocephalic Pupils: Present: PERRL Extroacular Muscles: Present: EOMI Conjunctiva: Present: Normal Mouth: Present: Moist Mucous Membranes Neck: Present: Normal Range of Motion Respiratory/Chest: Present: Clear to Auscultation, Good Air Exchange. No: Respiratory Distress, Accessory Muscle Use Cardiovascular: Present: Tachycardic Abdomen: Present: Normal Bowel Sounds. No: Tenderness, Distention, Peritoneal Signs Back: Present: Normal Inspection Upper Extremity: Present: Normal Inspection. No: Cyanosis, Edema Lower Extremity: Present: Normal Inspection. No: Edema Neurological: Present: GCS=15, CN II-XII Intact, Speech Normal Skin: Present: Warm, Dry, Normal Color. No: Rashes Psychiatric: Present: Alert, Oriented x 3, Normal Insight, Normal Concentration Medical Decision Making ED Course and Treatment: 04/10/17 09:37 Impression: A 52 year old female presents to the emergency department with a complaint of shortness of breath since this morning. pt in er anxious apperaing, tearful, having panic attack. Plan: -- EKG -- Chest X-ray -- Labs -- Urinalysis -- Ativan and IV Fluids -- Reassess and disposition Prior Visits: Notes and results from previous visits were reviewed. Patient was last seen in the emergency department on 12/13/16 15:39. The patient was seen in the emergency department with complaints of chest pain and left sided numbness. The patient was hospitalized. Progress Notes: EKG: Ordered, reviewed, and independently interpreted the EKG. Rate : 140 BPM Rhythm : Sinus Tachycardia Interpretation : LBBB CHEST X-RAY Dictator : Ghazala Coyle MD Report Date : 04/10/2017 10:33:33 IMPRESSION: No active pulmonary disease. EKG: Ordered, reviewed, and independently interpreted the EKG. Rate : 82 BPM Rhythm : NSR Interpretation : LBBB. Sgarbossa criteria negative. 04/10/17 14:32 labs ekg unremarkable. tachycardia resolved. pt with family in nad - Lab Interpretations Lab Results: 04/10/17 09:35 04/10/17 09:35 Lab Results 04/10/17 10:40: Urine Color Yellow, Urine Appearance Clear, Urine pH 6.5, Ur Specific [place] <= 1.005, Urine Protein Negative, Urine Glucose (UA) Negative, Urine Ketones 15 H, Urine Blood Negative, Urine Nitrate Negative, Urine Bilirubin Negative, Urine Urobilinogen 0.2, Ur Leukocyte Esterase Negative, Urine HCG, Qual Negative 04/10/17 09:35: Sodium 137, Potassium 2.9 L* D, Chloride 102, Carbon Dioxide 22 , Anion Gap 16, BUN 9, Creatinine 0.8, Est GFR ( Amer) > 60, Est GFR (Non -Af Amer) > 60, Random Glucose 142 H, Calcium 10.0, Magnesium 1.7, Total Bilirubin 0.9, AST 26, ALT 20, Alkaline Phosphatase 65, Lactate Dehydrogenase 407, Total Creatine Kinase 59, Troponin I < 0.01, NT-Pro-B Natriuret Pep 27.8, Total Protein 8.6 H, Albumin 4.7, Globulin 3.9, Albumin/Globulin Ratio 1.2 04/10/17 09:35: PT 12.6 H, INR 1.14 H, APTT 30.9, D-Dimer, Quantitative 220 04/10/17 09:35: WBC 12.5 H D, RBC 5.10, Hgb 15.1, Hct 42.6, MCV 83.5, MCH 29.6, MCHC 35.4, RDW 12.9, Plt Count 301, MPV 11.2 H, Gran % 64.5, Lymph % (Auto) 25.4 , [place] % (Auto) 9.0 H, Eos % (Auto) 0.7 L, Baso % (Auto) 0.4, Gran # 8.07 H, Lymph # 3.2, [place] # 1.1 H, Eos # 0.1, Baso # 0.05 I have reviewed the lab results: Yes - RAD Interpretation Radiology Orders: 04/10/17 09:23 CHEST PORTABLE [RAD] Stat - EKG Interpretation Interpreted by ED Physician: Yes Type: 12 lead EKG - Medication Orders Current Medication Orders: Discontinued Medications Acetaminophen (Tylenol 325mg Tab) 975 mg PO STAT STA Stop: 04/10/17 12:40 Last Admin: 04/10/17 12:49 Dose: 975 mg MAR Pain/Vitals Document 04/10/17 12:49 NAOMIE (Rec: 04/10/17 12:50 NAOMIE [id number]) Pain Reassessment Is This A Pain ReAssessment? Yes Presence of Pain Presence of Pain Yes Pain Scale Used Pain Scale Used Numeric Location Pain Location Body Site Chest Intensity 2 Scale Used Numeric Sodium Chloride (Sodium Chloride 0.9%) 1,000 mls @ 999 mls/hr IV .Q1H1M STA Stop: 04/10/17 10:24 Last Admin: 04/10/17 09:15 Dose: 999 mls/hr eMAR Start Stop Document 04/10/17 09:15 NAOMIE (Rec: 04/10/17 09:27 NAOMIE [id number]) Intravenous Solution Start Date 04/10/17 Start Time 09:15 End Date 04/10/17 End time 10:15 Total Infusion Time 60 Lorazepam (Ativan) 0.5 mg IVP STAT STA PRN Reason: Protocol Stop: 04/10/17 09:24 Last Admin: 04/10/17 09:31 Dose: 0.5 mg IVP Administration Document 04/10/17 09:31 NAOMIE (Rec: 04/10/17 09:31 NAOMIE [id number]) Charges for Administration # of IVP Administrations 1 Potassium Chloride (K-Dur 20 Meq Er Tab) 40 meq PO STAT STA Stop: 04/10/17 10:49 Last Admin: 04/10/17 11:05 Dose: 40 meq - Scribe Statement The provider has reviewed the documentation as recorded by the Merly Sanchez Provider Merly Attestation: All medical record entries made by the Alyciaibe were at my direction and personally dictated by me. I have reviewed the chart and agree that the record accurately reflects my personal performance of the history, physical exam, medical decision making, and the department course for this patient. I have also personally directed, reviewed, and agree with the discharge instructions and disposition. Disposition/Present on Arrival - Present on Arrival Any Indicators Present on Arrival: No History of DVT/PE: No History of Uncontrolled Diabetes: No Urinary Catheter: No History of Decub. Ulcer: No History Surgical Site Infection Following: None - Disposition Have Diagnosis and Disposition been Completed?: Yes Diagnosis: Chest pain, Dyspnea Disposition: HOME/ ROUTINE Disposition Time: 11:36 Condition: STABLE Discharge Instructions (ExitCare): Chest Pain (ED), Chest Pain (DC), Hypokalemia (ED), Anxiety (ED) Additional Instructions: please follow up withyour doctor/specialsit. return to er with worsening symptoms or concerns. Referrals: Goldy Zuniga MD [Primary Care Provider] - Follow up with primary Paresh Avila MD [Staff Provider] - Follow up with primary Forms: [employer] ([employer])
[2017-04-10 09:48] VITALS: TEMP 98.3
[2017-04-10 09:52] LABS: BASO # 0.05 K/mm3 (0.0-2.0); BASO % 0.4 % (0.0-3.0); EOS # 0.1 (0.0-0.7); EOS % 0.7 % (1.5-5.0); GRAN # 8.07 (1.4-6.5); GRAN % 64.5 % (50.0-68.0); HEMATOCRIT 42.6 % (36.0-48.0); LYMPH # 3.2 (1.2-3.4); LYMPH % 25.4 % (22.0-35.0); MEAN CELL VOLUME 83.5 fl (80.0-105.0); MEAN CORPUSCULAR HEMOGLOBIN 29.6 pg (25.0-35.0); MEAN CORPUSCULAR HGB CONC 35.4 g/dl (31.0-37.0); MEAN PLATELET VOLUME 11.2 fl (7.0-11.0); MONO # 1.1 (0.1-0.6); RED CELL DISTRIBUTION WIDTH 12.9 % (11.5-14.5); WHITE BLOOD COUNT 12.5 10^3/ul (4.5-11.0)
[2017-04-10 10:01] LABS: INR 1.14 (0.93-1.08); PARTIAL THROMBOPLASTIN TIME 30.9 Seconds (25.1-36.5)
[2017-04-10 10:14] LABS: TROPONIN I < 0.01 ng/mL
--- NOTE | 2017-04-10 10:35 | RAD ---
HISTORY: sob COMPARISON: 12/13/2016 FINDINGS: LUNGS: No active pulmonary disease. PLEURA: No significant pleural effusion identified, no pneumothorax apparent. CARDIOVASCULAR: Normal. OSSEOUS STRUCTURES: No significant abnormalities. VISUALIZED UPPER ABDOMEN: Normal. OTHER FINDINGS: None. IMPRESSION: No active pulmonary disease.
[2017-04-10] MEDS ORDERED: Potassium Chloride 20 mEq ER Tab PO STA (10:48)
[2017-04-10 10:50] LABS: ALB/GLOB RATIO 1.2 (1.1-1.8); ALKALINE PHOSPHATASE 65 U/L (38-126); ALT/SGPT 20 U/L (7-56); AST/SGOT 26 U/L (14-36); BILIRUBIN,TOTAL 0.9 mg/dL (0.2-1.3); BLOOD UREA NITROGEN 9 mg/dL (7-21); CARBON DIOXIDE 22 mmol/L (21-33); CHLORIDE 102 mmol/L (98-107); GFR AFRICAN-AMERICAN > 60; GLUCOSE,RANDOM 142 mg/dL (70-110); MAGNESIUM 1.7 mg/dL (1.7-2.2); SODIUM 137 mmol/L (132-148); TOTAL PROTEIN 8.6 g/dL (5.8-8.3)
[2017-04-10 11:02] LABS: PH,URINE 6.5 (4.7-8.0); URINE BILIRUBIN NEGATIVE (NEGATIVE); URINE BLOOD NEGATIVE (NEGATIVE); URINE GLUCOSE (UA) NEGATIVE (NEGATIVE); URINE KETONE 15 mg/dL (NEGATIVE); URINE LEUKOCYTE ESTERASE NEGATIVE Leu/uL (NEGATIVE); URINE PROTEIN NEGATIVE mg/dL (<30 mg/dL); URINE UROBILINOGEN 0.2 E.U./dL (<1 E.U./dL)
[2017-04-10 11:03] LABS: URINE APPEARANCE CLEAR (CLEAR); URINE COLOR YELLOW (YELLOW)
[2017-04-10 11:06] LABS: POTASSIUM 2.9 mmol/L (3.6-5.0)
[2017-04-10 11:08] VITALS: RESP 18
[2017-04-10 12:11] VITALS: BP 123/61; PULSE 89
--- NOTE | 2017-04-10 16:44 | CARD ---
APPROVED REPORT EKG Measurement Heart [id number] <Conclusion> Normal sinus rhythm Left bundle branch block Abnormal ECG
--- NOTE | 2017-04-10 17:29 | CARD ---
APPROVED REPORT EKG Measurement Heart [id number] <Conclusion> Supraventricular tachycardia Left axis deviation Left bundle branch block Abnormal ECG
== END 2017-04-10 13:27 | disposition home or self-care (01) ==
LOC: ED 09:09
DX: R07.9 Chest pain, unspecified (principal); R06.00 Dyspnea, unspecified; I10 Essential (primary) hypertension; K21.9 Gastro-esophageal reflux disease without esophagitis
CPT/HCPCS: 71010; 80053; 81003; 82550; 83615; 83735; 83880; 84484; 84703; 85025; 85378; 85610; 85730; 93005; 96361; 96374; 99284; J2060; J7040

== ENCOUNTER 2017-05-03 17:04 | Emergency (ER) | payer OTHER ==
[2017-05-03 17:05] VITALS: BMI 29.2
[2017-05-03 17:20] VITALS: TEMP 98
[2017-05-03] MEDS ORDERED: DiphenhydrAMINE 50 mg/ml Inj IVP STA (17:32)
--- NOTE | 2017-05-03 17:32 | ED PDOC ---
Arrival/HPI - General Chief Complaint: Headache Time Seen by Provider: 05/03/17 17:21 Historian: Patient - History of Present Illness Narrative History of Present Illness (Text): 05/03/17 17:22 52 y/o female, pmh including htn, allergic to aspirin, c/o headache x 5 hours. Aching and tightness, aggravated by bright light, no dizziness, no change in vision, no night sweat, no dizziness, no numbness or tingling, no palpitation, no rash, no other medical or psychological complaints. Past Medical History - Provider Review Nursing Documentation Reviewed: Yes - Infectious Disease Hx of Infectious Diseases: None - Reproductive Menopause: No - Cardiac Hx Cardiac Disorders: Yes Hx Hypertension: Yes - Pulmonary Hx Respiratory Disorders: No - Neurological Hx Neurological Disorder: No - HEENT Hx HEENT Disorder: No - Renal Hx Renal Disorder: No - Endocrine/Metabolic Hx Endocrine Disorders: No - Hematological/Oncological Hx Blood Disorders: No - Integumentary Hx Dermatological Disorder: No - Musculoskeletal/Rheumatological Hx Musculoskeletal Disorders: No Hx Falls: No - Gastrointestinal Hx Gastrointestinal Disorders: Yes Hx Diverticulitis: Yes Hx Gastroesophageal Reflux: Yes - Genitourinary/Gynecological Hx Genitourinary Disorders: No - Psychiatric Hx Psychophysiologic Disorder: Yes (INSOMNIA) Hx Substance Use: No - Surgical History Hx Section: Yes - Anesthesia Hx Anesthesia: Yes Hx Anesthesia Reactions: No Hx Malignant Hyperthermia: No Family/Social History - Physician Review Nursing Documentation Reviewed: Yes Family/Social History: Unknown Family HX Smoking Status: Never Smoked Hx Alcohol Use: Yes (SOCIALLY) Hx Substance Use: No Allergies/Home Meds Allergies/Adverse Reactions: Allergies aspirin Allergy (Verified 05/03/17 17:20) RASH Home Medications: Home Meds Medication Instructions Recorded Confirmed Losartan/Hydrochlorothiazide 1 tab PO DAILY 12/13/16 05/03/17 [Losartan-Hctz 50-12.5 mg Tab] Cyclobenzaprine [Cyclobenzaprine 10 mg PO PRN PRN 04/10/17 05/03/17 HCl] Pantoprazole [Protonix] 40 mg PO DAILY 05/03/17 05/03/17 Review of Systems - Review of Systems Constitutional: absent: Fatigue, Fevers Eyes: absent: Vision Changes ENT: absent: Hearing Changes Respiratory: absent: SOB, Cough Cardiovascular: absent: Chest Pain Gastrointestinal: absent: Abdominal Pain, Nausea, Vomiting Musculoskeletal: absent: Arthralgias, Back Pain, Joint Swelling, Myalgias Skin: absent: Rash, Pruritis Neurological: Headache. absent: Dizziness, Focal Weakness Psychiatric: absent: Anxiety, Depression Physical Exam Vital Signs Reviewed: Yes Vital Signs Temp Pulse Resp BP Pulse Ox 05/03/17 20:19 92 H 18 129/80 98 05/03/17 17:16 98 F 103 H 16 140/106 H 100 Temperature: Afebrile Blood Pressure: Hypertensive Pulse: Tachycardic Respiratory Rate: Normal Appearance: Positive for: Well-Appearing, Non-Toxic Pain Distress: Severe Mental Status: Positive for: Alert and Oriented X 3 - Systems Exam Head: Present: Atraumatic, Normocephalic, Other (no temporal artery tenderness, no sinus tenderness. ). No: Tenderness, Contusion, Swelling, Ecchymosis, Abrasion Pupils: Present: PERRL Extroacular Muscles: Present: EOMI Conjunctiva: Present: Normal Ears: Present: NORMAL TM, Normal Canal. No: Erythema Mouth: Present: Moist Mucous Membranes Pharnyx: No: ERYTHEMA, EXUDATE, TONSILS ENLARGED, Muffled/Hoarse Voice, Soft Palate/Uvular Edema Nose (External): Present: Atraumatic. No: Abrasion, Contusion, Laceration Nose (Internal): Present: Normal Inspection, No Active Bleeding. No: Rhinorrhea , Septal Hematoma, Epistaxis Neck: Present: Normal Range of Motion, Trachea Midline. No: Meningeal Signs, MIDLINE TENDERNESS, Paraspinal Tenderness, Lymphadenopathy Respiratory/Chest: Present: Clear to Auscultation, Good Air Exchange. No: Respiratory Distress, Accessory Muscle Use, Wheezes, Decreased Breath Sounds, Rales, Retracting, Rhonchi, Tachypneic Cardiovascular: Present: Regular Rate and Rhythm, Normal S1, S2. No: Murmurs Abdomen: Present: Normal Bowel Sounds. No: Tenderness, Distention, Peritoneal Signs Back: Present: Normal Inspection Upper Extremity: Present: Normal Inspection. No: Cyanosis, Edema Lower Extremity: Present: Normal Inspection. No: Edema Neurological: Present: GCS=15, CN II-XII Intact, Speech Normal, Motor Func Grossly Intact, Gait Normal, Memory Normal Skin: Present: Warm, Dry, Normal Color. No: Rashes Psychiatric: Present: Alert, Oriented x 3, Normal Insight, Normal Concentration Medical Decision Making ED Course and Treatment: 05/03/17 17:38 -CT head -labs -IVF/benadryl/reglan -Observe and reassess 05/03/17 20:05 -Urine hcg negative -Labs are non-significant except wbc 11.6 (afebrile, likely stress and pain induced) -CT Head: No acute intracranial abnormality. Mild paranasal sinus disease is noted above. -Pt. feels completely resolved, no focal neurological deficits, will discharge home. -Discharge home with augmentin, flonase, motrin, bed rest, follow up with your own pmd and ENT within 2 days, return to the ER for any new or worsening signs or symptoms. - Lab Interpretations Lab Results: 05/03/17 17:50 05/03/17 17:50 Lab Results 05/03/17 17:50: Sodium 138, Potassium 3.7, Chloride 99, Carbon Dioxide 27, Anion Gap 16, BUN 12, Creatinine 0.8, Est GFR ( Amer) > 60, Est GFR (Non- Af Amer) > 60, Random Glucose 115 H, Calcium 9.9, Total Bilirubin 0.4, AST 25, ALT 28, Alkaline Phosphatase 62, Total Protein 8.5 H, Albumin 4.6, Globulin 3.9 , Albumin/Globulin Ratio 1.2 05/03/17 17:50: WBC 11.6 H, RBC 4.84, Hgb 13.9, Hct 41.2, MCV 85.1, MCH 28.7, MCHC 33.7, RDW 12.8, Plt Count 279, MPV 10.7, Gran % 66.3, Lymph % (Auto) 25.4, Glenn % (Auto) 6.9 H, Eos % (Auto) 1.1 L, Baso % (Auto) 0.3, Gran # 7.71 H, Lymph # 3.0, Glenn # 0.8 H, Eos # 0.1, Baso # 0.04 - RAD Interpretation Radiology Orders: 05/03/17 17:32 HEAD W/O CONTRAST [CT] Stat Brain: The white-barreto differentiation is preserved demonstrating no acute territorial type infarct. No acute intracranial hemorrhage is seen. Midline shift: There is no midline shift. Ventricles: No ventriculomegaly. Bones/joints: The calvarium demonstrates no evidence for a depressed fracture. Soft tissues: No acute abnormality. Sinuses: There is mild mucosal thickening of a few ethmoid air cells. Mastoid air cells: No mastoid effusion. IMPRESSION: 1. No acute intracranial abnormality. 2. Mild paranasal sinus disease is noted above. Thank you for allowing us to participate in the care of your patient. Dictated and Authenticated by: Amarjit Aguilar MD 05/03/2017 8:00 PM Eastern Time ([place] & [place]) Aircraft Log Clerk: Radiologist - Medication Orders Current Medication Orders: Discontinued Medications Diphenhydramine HCl (Benadryl) 50 mg IVP STAT STA Stop: 05/03/17 17:33 Last Admin: 05/03/17 17:43 Dose: 50 mg IVP Administration Document 05/03/17 17:43 TA (Rec: 05/03/17 17:43 TA [id number]) Charges for Administration # of IVP Administrations 1 Sodium Chloride (Sodium Chloride 0.9%) 500 mls @ 999 mls/hr IV .Q31M STA Stop: 05/03/17 18:03 Last Admin: 05/03/17 17:42 Dose: 999 mls/hr eMAR Start Stop Document 05/03/17 17:42 TA (Rec: 05/03/17 17:43 TA [id number]) Intravenous Solution Start Date 05/03/17 Start Time 17:43 Metoclopramide HCl (Reglan) 10 mg IVP STAT STA Stop: 05/03/17 17:33 Last Admin: 05/03/17 17:43 Dose: 10 mg IVP Administration Document 05/03/17 17:43 TA (Rec: 05/03/17 17:44 TA [id number]) Charges for Administration # of IVP Administrations 1 - PA / STAFFING DIRECTOR / Resident Statement MD/DO has reviewed & agrees with the documentation as recorded. Disposition/Present on Arrival - Present on Arrival Any Indicators Present on Arrival: No History of DVT/PE: No History of Uncontrolled Diabetes: No Urinary Catheter: No History of Decub. Ulcer: No History Surgical Site Infection Following: None - Disposition Have Diagnosis and Disposition been Completed?: Yes Diagnosis: Sinusitis, Headache Disposition: HOME/ ROUTINE Disposition Time: 20:09 Patient Plan: Discharge Patient Problems: Current Active Problems Problem Status Onset Sinusitis Acute Headache Acute Condition: GOOD Additional Instructions: -Discharge home with augmentin, flonase, motrin, bed rest, follow up with your own pmd and ENT within 2 days, return to the ER for any new or worsening signs or symptoms. Prescriptions: Acetaminophen [Tylenol 325mg tab] 2 tab PO QID PRN #30 tab PRN Reason: Other Amoxicillin/Clavulanate [Augmentin 875 MG-125 MG] 1 tab PO BID #14 tab Fluticasone Nasal [Flonase] 2 spr NS DAILY #1 spr Referrals: Goldy Zuniga MD [Primary Care Provider] - Follow up with primary Esau Cheatham DO [Staff Provider] - Follow up with primary Forms: WORK NOTE
[2017-05-03] MEDS ORDERED: Sodium Chloride 0.9% 500 ML IV STA (17:33)
[2017-05-03 18:01] LABS: BASO # 0.04 K/mm3 (0.0-2.0); BASO % 0.3 % (0.0-3.0); EOS # 0.1 (0.0-0.7); EOS % 1.1 % (1.5-5.0); GRAN # 7.71 (1.4-6.5); GRAN % 66.3 % (50.0-68.0); HEMATOCRIT 41.2 % (36.0-48.0); LYMPH % 25.4 % (22.0-35.0); MEAN CELL VOLUME 85.1 fl (80.0-105.0); MEAN CORPUSCULAR HEMOGLOBIN 28.7 pg (25.0-35.0); MEAN CORPUSCULAR HGB CONC 33.7 g/dl (31.0-37.0); MEAN PLATELET VOLUME 10.7 fl (7.0-11.0); MONO # 0.8 (0.1-0.6); MONO % 6.9 % (1.0-6.0); RED CELL DISTRIBUTION WIDTH 12.8 % (11.5-14.5); WHITE BLOOD COUNT 11.6 10^3/ul (4.5-11.0)
[2017-05-03 18:32] LABS: ALB/GLOB RATIO 1.2 (1.1-1.8); ALKALINE PHOSPHATASE 62 U/L (38-126); ALT/SGPT 28 U/L (7-56); AST/SGOT 25 U/L (14-36); BILIRUBIN,TOTAL 0.4 mg/dL (0.2-1.3); BLOOD UREA NITROGEN 12 mg/dL (7-21); CALCIUM 9.9 mg/dL (8.4-10.5); CARBON DIOXIDE 27 mmol/L (21-33); CHLORIDE 99 mmol/L (98-107); GFR AFRICAN-AMERICAN > 60; GLUCOSE,RANDOM 115 mg/dL (70-110); POTASSIUM 3.7 mmol/L (3.6-5.0); SODIUM 138 mmol/L (132-148); TOTAL PROTEIN 8.5 g/dL (5.8-8.3)
--- NOTE | 2017-05-03 20:01 | CT ---
EXAM: CT Head Without Intravenous Contrast EXAM DATE/TIME: 05/03/2017 5:32 PM CLINICAL HISTORY: The patient age is 52 years old and is female; Pain and signs and symptoms; Other: Nausea; Headache; Headache not specified; Additional info: Headache x 1 day Facility exam id and description: Ct heads head w/o contrast TECHNIQUE: Axial computed tomography images of the head/brain without intravenous contrast. All CT scans at this facility use one or more dose reduction techniques, viz.: automated exposure control; ma/kV adjustment per patient size (including targeted exams where dose is matched to indication; i.e. head); or iterative reconstruction technique. Coronal and sagittal reformatted images were created and reviewed. COMPARISON: CT - HEAD W/O (CODE STROKE) 2016-12-13 15:49 FINDINGS: Brain: The white-barreto differentiation is preserved demonstrating no acute territorial type infarct. No acute intracranial hemorrhage is seen. Midline shift: There is no midline shift. Ventricles: No ventriculomegaly. Bones/joints: The calvarium demonstrates no evidence for a depressed fracture. Soft tissues: No acute abnormality. Sinuses: There is mild mucosal thickening of a few ethmoid air cells. Mastoid air cells: No mastoid effusion. IMPRESSION: 1. No acute intracranial abnormality. 2. Mild paranasal sinus disease is noted above.
[2017-05-03 20:20] VITALS: BP 129/80; PULSE 92; RESP 18; O2SAT 98
== END 2017-05-03 20:20 | disposition home or self-care (01) ==
LOC: ED 17:04
DX: J32.9 Chronic sinusitis, unspecified (principal); R51 Headache
CPT/HCPCS: 70450; 80053; 85025; 96374; 96375; 99285; J1200; J2765; J7040